=== PATIENT | male | born 1945 | race Caucasian/White ===

== ENCOUNTER 2016-11-21 06:10 | Emergency (ER) | payer OTHER ==
[~2016-11-21] VITALS: Ht 167.6 cm; Wt 80.5 kg
[2016-11-21 06:13] VITALS: Ht 167.6 cm; Wt 80.5 kg
[2016-11-21] MEDS ORDERED: SOD CHLORIDE 0.9% 1,000 ML IV STA (07:12)
[2016-11-21] MEDS ORDERED: BELLADONNA/PHENOBARBITAL TAB PO STA (07:12)
[2016-11-21] MEDS ORDERED: morphine 4 MG/ML VIAL IV STA (07:12)
[2016-11-21] MEDS ORDERED: FAMOTIDINE 20 MG TAB PO STA (07:12)
[2016-11-21] MEDS ORDERED: LIDOCAINE/MYLANTA 40 ML BTL PO STA (07:12)
[2016-11-21] MEDS ORDERED: ONDANSETRON 4 MG INJ IV STA (07:12)
[2016-11-21 07:39] LABS: ADD SCAN DIFF NO
[2016-11-21 07:51] LABS: BASOPHIL # 0.1 10^3/ul (0.0-0.1); BASOPHILS % 0.4 % (0.0-2.0); EOSINOPHILS # 0.1 10^3/ul (0.0-0.5); EOSINOPHILS % 0.4 % (0.0-7.0); HEMATOCRIT 48.6 % (42.0-52.0); LYMPHOCYTES # 1.2 10^3/ul (0.8-2.9); LYMPHOCYTES % 8.2 % (15.0-51.0); MEAN CORPUSCULAR HEMOGLOBIN 29.1 pg (29.0-33.0); MEAN CORPUSCULAR HGB CONC 32.9 g/dl (32.0-37.0); MEAN CORPUSCULAR VOLUME 88.4 fl (82.0-101.0); MEAN PLATELET VOLUME 11.6 fl (7.4-10.4); MONOCYTE # 0.7 10^3/ul (0.3-0.9); MONOCYTES % 4.6 % (0.0-11.0); NEUTROPHIL # 12.1 10^3/ul (1.6-7.5); PLATELET COUNT 141 10^3/UL (140-415); RED CELL DISTRIBUTION WIDTH 13.4 % (11.5-14.5); WHITE BLOOD COUNT 14.1 10^3/ul (4.8-10.8)
[2016-11-21 08:00] LABS: INR 0.93; PROTIME 12.5 Sec (12.2-14.2)
[2016-11-21 08:06] LABS: ALANINE AMINOTRANSFERASE 29 IU/L (13-69); ALBUMIN 4.2 g/dl (3.3-4.9); ALBUMIN/GLOBULIN RATIO 1.31; ALKALINE PHOSPHATASE 116 IU/L (42-121); ANION GAP 11 (8-16); ASPARTATE AMINO TRANSFERASE 25 IU/L (15-46); BILIRUBIN,INDIRECT 0.3 mg/dl (0-1.1); BILIRUBIN,TOTAL 0.3 mg/dl (0.2-1.3); BLOOD UREA NITROGEN 15 mg/dl (7-20); CARBON DIOXIDE 29 mmol/L (21-31); CHLORIDE 103 mmol/L (97-110); CREATININE 0.87 mg/dl (0.61-1.24); GLUCOSE 150 mg/dl (70-220); POTASSIUM 4.3 mmol/L (3.5-5.1); SODIUM 139 mmol/L (135-144); TOTAL PROTEIN 7.4 g/dl (6.1-8.1)
[2016-11-21 08:13] LABS: ADD UMIC YES; URINE BILIRUBIN (Dip) NEGATIVE (NEGATIVE); URINE BLOOD (Dip) NEGATIVE (NEGATIVE); URINE COLOR YELLOW (YELLOW); URINE GLUCOSE (Dip) NEGATIVE (NEGATIVE); URINE KETONES (Dip) NEGATIVE (NEGATIVE); URINE LEUKOCYTE ESTERASE (Dip) NEGATIVE (NEGATIVE); URINE NITRITE (Dip) NEGATIVE (NEGATIVE); URINE TOTAL PROTEIN (Dip) TRACE (NEGATIVE); URINE UROBILINOGEN (Dip) 1.0 E.U./dL (0.1-1.0)
[2016-11-21 08:19] LABS: TROPONIN-I < 0.012 ng/ml (0.00-0.12)
--- NOTE | 2016-11-21 08:27 | RADRPT ---
PROCEDURE: CT Abdomen and Pelvis without contrast. CLINICAL INDICATION: Abdominal pain. TECHNIQUE: CT scan of the abdomen and pelvis without contrast was performed on a multidetector hig h-resolution CT scanner. The patient was scanned without intravenous contrast. Coronal and sagittal reformatted images were obtained from the axial source images. Images were reviewed on a high-resol [employer] PACS workstation. One or more of the following dose reduction techniques were used: Automated exposure control, adjustment of the mA and/or kV according to patient size, use of iterative recon struction technique. The total exam CTDI equals 14.71 mGy and the total exam DLP equals 950.72 mGy- cm. COMPARISON: None. FINDINGS: CT abdomen: The partially imaged 4 mm nodule is present in the posterior left lower lobe. A 4 mm subpleural nod ule is also seen in the right lower lobe. Otherwise, the lung bases are clear. Small fat containin g Bochdalek hernia is present on the right. The heart size is normal, without pericardial thickenin g or effusion. The liver is normal in size and density without focal mass or intrahepatic biliary dilatation. A pe ripherally calcified exophytic rounded lesion is present at the superior pole of the spleen. Otherw ise, the spleen is normal in size and homogeneous in density. The stomach is grossly unremarkable. The pancreas as visualized is normal. Small stones are present dependently within the gallbladder, there is no evidence of gallbladder wall edema or pericholecystic inflammatory change. The biliary tree is unremarkable and there is no evidence for biliary dilatation. The adrenal glands are symme tric and normal. The kidneys are symmetrically unremarkable as well. No renal calculus or obstruct keith uropathy or mass lesion is seen. A small fat-containing umbilical hernia is present. The aorta is of normal caliber. There is no retroperitoneal lymphadenopathy. The kit hepatis reg ion is clear. There is fecalization of the small bowel contents distally. No overly distended small bowel loops or air-fluid levels are seen. Fecal material is seen throughout the proximal colon. CT pelvis: The small bowel loops situated within the pelvis are unremarkable. The prostate gland is mildly pro minent measuring 4.4 5.0 x 5.4 cm. The pelvic sidewalls and inguinal regions are clear. The sigmoi d colon and rectum are unremarkable. The appendix is normal. No mass, lymphadenopathy, or free fluid is seen. No acute inflammation is seen. The patient is status post posterior spinal fusion of L1-S1 with associated laminectomies. No osteo lytic or osteoblastic lesion is detected. IMPRESSION: 1. No abdominal or pelvic acute inflammatory process, mass, or lymphadenopathy. 2. Fecalization of the distal small bowel contents without additional evidence of small bowel obstr uction. The findings may represent functional delayed small bowel transit. 3. Cholelithiasis without evidence of cholecystitis. 4. Peripherally calcified exophytic lesion at the superior pole of the spleen, of uncertain signifi cance but most likely benign in nature. 5. Small 4 mm bilateral lower lobe pulmonary nodules. Per the Fleischner criteria guidelines(2017) , if the patient is at low risk for pulmonary malignancy, no further follow-up is recommended. If t he patient is at high risk for pulmonary malignancy, follow-up CT may be obtained in 12 months. 6. Status post posterior spinal fusion of L1-S1 with laminectomies. 7. Small fat-containing umbilical hernia. 8. Prostatomegaly. Correlate with PSA. RPTAT: JJ .Ortiz Boyer MD, MD Date Time Electronically viewed and signed by .Ortiz Boyer MD, on 11/21/2016 08:27 .A/
[2016-11-21 08:29] LABS: BACTERIA,URINE FEW; MUCUS,URINE FEW; URINE RBCS 0-2 /HPF (0)
[2016-11-21] MEDS ORDERED: OXYC-279 PO (09:41)
[2016-11-21] MEDS ORDERED: IBUP-1542 PO (09:41)
[2016-11-21] MEDS ORDERED: MAG355OR14 PO (09:41)
[2016-11-21] MEDS ORDERED: ONDA4TAB8 PO (09:41)
[2016-11-21] MEDS ORDERED: KETOROLAC 15 MG INJ IV STA (09:42)
--- NOTE | 2016-11-21 09:46 | ERD ---
ER Documentation Chief Complaint Date/Time DATE: 11/21/16 TIME: 09:44 Chief Complaint abdominal pain/vomiting since 0100 HPI 71-year-old man complains of epigastric abdominal pain which is sharp nonradiating and nonexertional as well as bilateral flank pain since last night. He has also had a few episodes of clear nonbloody nonbilious emesis without diarrhea. He denies precipitating or alleviating factors and denies previous episodes, he has had no melena or blood per rectum, no chest pain or shortness of breath. He states the pain is nonradiating and nonexertional. He has had no dysuria, no trauma, no recent travel, no recent antibiotic use. ROS All systems reviewed and are negative except as per history of present illness. Medications Home Meds Active Scripts Ondansetron Hcl* (Zofran*) 4 Mg Tablet, 4 MG PO Q8H Y for NAUSEA AND/OR VOMITING , #12 TAB Prov:JOHN MANZANARES MD 11/21/16 Oxycodone HCl/Acetaminophen (Percocet 5-325 mg Tablet) 1 Each Tablet, 1 EACH PO TID for PAIN LEVEL 6-10, #12 TAB Prov:JOHN MANZANARES MD 11/21/16 Mag Hydrox/Al Hydrox/Simeth (Maalox Advanced Suspension) 355 Ml Oral.susp, 2 TSP PO TID for PAIN AND/OR INFLAMMATION, #24 OZ Prov:JOHN MANZANARES MD 11/21/16 Ibuprofen* (Ibuprofen*) 600 Mg Tablet, 600 MG PO Q8 for PAIN AND/OR INFLAMMATION , #30 TAB Prov:JOHN MANZANARES MD 11/21/16 Allergies Allergies: Coded Allergies: No Known Drug Allergies (Verified Allergy, Unknown, 11/21/16) PMhx/Soc Obesity, gastritis, hypertension Medical and Surgical Hx: pt denies Medical Hx History of Surgery: Yes (back) Smoking Status: Former smoker FmHx Family History: No diabetes Physical Exam Vitals Vital Signs Date Time Temp Pulse Resp B/P Pulse Ox O2 Delivery O2 Flow Rate FiO2 11/21/16 10:29 98.2 93 18 131/67 98 Room Air 11/21/16 09:22 78 17 140/69 99 Room Air 11/21/16 06:13 96.8 58 20 155/93 98 Physical Exam GENERAL: Well-developed, well-nourished, hydrated, mild distress HEENT: Moist mucous membranes, pink conjunctiva, no cervical spine tenderness or step-off deformities, no goiter, no jaundice or icterus, extraocular movements intact without pain. No submandibular induration, and no pharyngeal erythema NEURO: Alert and oriented 3, cranial nerves II through XII intact bilaterally, pupils equal round reactive to light, no focal deficits or facial asymmetry, sensation intact distally Strength 5/5 in upper and lower extremities bilaterally CARDIAC: Regular rate and rhythm, no murmurs rubs or gallops LUNGS: Clear bilaterally no wheezing crackles or stridor ABDOMEN: Mild right upper quadrant tenderness to touch without guarding or rigidity, no rebound, no psoas sign no obturator sign. Normoactive bowel sounds SKIN: Warm and dry to touch, no abrasions, contusions, or hematomas, no lacerations, no ecchymosis, no target lesions, and without ulcers EXTREMITIES: No clubbing cyanosis or edema, calves are bilaterally symmetrical, no Homans sign, no popliteal cord sign. Distal pulses equal and bilateral PSYCH: Normal affect without agitation or irritability Result Diagram: 11/21/1673011/21/1631 Results 24 hrs Laboratory Tests Test 11/21/16 07:31 White Blood Count 14.110^3/ul Red Blood Count 5.5010^6/ul Hemoglobin 16.0g/dl Hematocrit 48.6% Mean Corpuscular Volume 88.4fl Mean Corpuscular Hemoglobin 29.1pg Mean Corpuscular Hemoglobin Concent 32.9g/dl Red Cell Distribution Width 13.4% Platelet Count 94329^3/UL Mean Platelet Volume 11.6fl Neutrophils % 86.0% Lymphocytes % 8.2% Monocytes % 4.6% Eosinophils % 0.4% Basophils % 0.4% Nucleated Red Blood Cells % 0.0/100WBC Neutrophils # 12.110^3/ul Lymphocytes # 1.210^3/ul Monocytes # 0.710^3/ul Eosinophils # 0.110^3/ul Basophils # 0.110^3/ul Nucleated Red Blood Cells # 0.010^3/ul Prothrombin Time 12.5Sec Prothrombin Time Ratio 1.0 INR International Normalized Ratio 0.93 Urine Color YELLOW Urine Clarity CLEAR Urine pH 7.5 Urine Specific [place] 1.010 Urine Ketones NEGATIVE Urine Nitrite NEGATIVE Urine Bilirubin NEGATIVE Urine Urobilinogen 1.0 E.U./dL Urine Leukocyte Esterase NEGATIVE Urine Microscopic RBC 0-2/HPF Urine Microscopic WBC 0-2/HPF Urine Epithelial Cells FEW Urine Bacteria FEW Urine Mucus FEW Urine Hemoglobin NEGATIVE Urine Glucose NEGATIVE% Urine Total Protein TRACE Sodium Level 139mmol/L Potassium Level 4.3mmol/L Chloride Level 103mmol/L Carbon Dioxide Level 29mmol/L Anion Gap 11 Blood Urea Nitrogen 15mg/dl Creatinine 0.87mg/dl Glucose Level 150mg/dl Calcium Level 9.0mg/dl Total Bilirubin 0.3mg/dl Direct Bilirubin 0.00mg/dl Indirect Bilirubin 0.3mg/dl Aspartate Amino Transf (AST/SGOT) 25IU/L Alanine Aminotransferase (ALT/SGPT) 29IU/L Alkaline Phosphatase 116IU/L Troponin I < 0.012ng/ml Total Protein 7.4g/dl Albumin 4.2g/dl Globulin 3.20g/dl Albumin/Globulin Ratio 1.31 Lipase 86U/L Current Medications Medications (Trade) Dose Ordered Sig/Alannah Route PRN Reason Start Time Stop Time Status Last Admin Dose Admin Sodium Chloride (NS) 1,000 ml @ 1,000 mls/hr Q1H STAT IV 11/21/16 07:12 11/21/16 08:11 DC 11/21/16 08:04 Morphine Sulfate (morphine) 4 mg ONCE STAT IV 11/21/16 07:12 11/21/16 07:17 DC 11/21/16 08:04 Ondansetron HCl (Zofran Inj) 4 mg ONCE STAT IV 11/21/16 07:12 11/21/16 07:18 DC 11/21/16 08:03 Famotidine (Pepcid) 40 mg ONCE STAT PO 11/21/16 07:12 11/21/16 07:18 DC 11/21/16 08:03 Miscellaneous Medication (Gi Cocktail (2)) 40 ml ONCE STAT PO 11/21/16 07:12 11/21/16 07:18 DC 11/21/16 08:03 Belladonna/ Phenobarbital () 2 tab ONCE STAT PO 11/21/16 07:12 11/21/16 07:18 DC 11/21/16 08:04 Ketorolac Tromethamine (Toradol) 15 mg ONCE STAT IV 11/21/16 09:42 11/21/16 09:43 DC 11/21/16 09:48 Procedures/MDM IV line was established patient was placed on translator/interpreter rhythm strip revealed a normal sinus rhythm at about 80 bpm with upright P and T waves. Patient was afebrile. EKG performed, read by me: 64 bpm, normal sinus rhythm, normal axis, no acute ST segment changes, narrow QRS complex, with good R-wave progression in precordial leads. CT scan of the abdomen and pelvis was performed revealing cholelithiasis and other incidental findings. Please refer to radiologist dictation for full report. CBC revealed a leukocytosis of 14, electrolytes unremarkable, liver function tests normal, troponin negative. I administered 1 L normal saline intravenously, Zofran 4 mg IV, morphine 4 mg IV , GI cocktail 50 cc p.o., and famotidine 40 mg p.o. with good response. Urine analysis was negative for infection. Differential diagnoses considered, included but not limited to acute coronary syndrome, pulmonary embolism, aortic dissection, abdominal aortic aneurysm, sepsis, stroke, meningitis, encephalitis, pneumonia, appendicitis, cholecystitis , bowel obstruction, pyelonephritis, nephrolithiasis, cystitis, as well as metabolic, hematologic, and electrolyte abnormalities. As well as abscess, cellulitis, fractures, and dislocations. Patient feels much better at this time, and vital signs are normal, symptoms have improved. I did give strict instructions to return to the ED if symptoms continue or worsen, patient will otherwise follow-up with primary care physician. Patient understood instructions and agreed to plan. Departure Diagnosis: Primary Impression: Cholelithiasis Cholelithiasis location: gallbladder Cholecystitis presence: without cholecystitis Biliary obstruction: without biliary obstruction Qualified Code : K80.20 - Calculus of gallbladder without cholecystitis without obstruction Additional Impressions: Gastritis Gastritis type: unspecified gastritis Chronicity: acute Gastritis bleeding : without bleeding Qualified Code: K29.00 - Acute gastritis without hemorrhage, unspecified gastritis type Vomiting Vomiting type: unspecified Vomiting Intractability: non-intractable Nausea presence: with nausea Qualified Code: R11.2 - Non-intractable vomiting with nausea, unspecified vomiting type Condition: Good Patient Instructions: Gallstones, Vomiting (6Y-Adult) JOHN MANZANARES MD Nov 21, 2016 09:46
[2016-11-21 10:29] VITALS: BP 131/67; PULSE 93; RESP 18; TEMP 98.2
== END 2016-11-21 10:29 | disposition home or self-care (01) ==
LOC: E/R 06:10
DX: K80.20 Calculus of gallbladder without cholecystitis without obstruction (principal); K29.00 Acute gastritis without bleeding; R11.2 Nausea with vomiting, unspecified; Z87.891 Personal history of nicotine dependence
CPT/HCPCS: 36415; 74176; 80053; 81001; 81003; 83690; 84484; 85025; 85610; 93005; 96374; 96375; 99285; J1885; J2270; J2405; J7030